=== PATIENT | male | born 1970 | race African-American/Black ===

== ENCOUNTER 2018-05-20 19:11 | Emergency (ER) | payer SELFPAY ==
[~2018-05-20] VITALS: Ht 188 cm; Wt 100.0 kg
[2018-05-20 19:19] VITALS: BP 132/91
== END 2018-05-20 21:14 | disposition left against medical advice (07) ==
LOC: ER 19:11
DX: Z53.21 Procedure and treatment not carried out due to patient leaving prior to being seen by health care provider (principal)